=== PATIENT | male | born 1995 | race Hispanic/Latino ===

== ENCOUNTER 2021-03-01 01:28 | Emergency (ER) | payer SELFPAY ==
[~2021-03-01] VITALS: Ht 165.1 cm; Wt 86.2 kg
[2021-03-01] MEDS ORDERED: HYDROCODONE/APAP 5MG-325MG TAB PO PRN (02:00)
[2021-03-01] MEDS ORDERED: HYDROCODONE/APAP 5MG-325MG TAB ONE (02:00)
[2021-03-01] MEDS ORDERED: BACITRACIN3.5 GM TP (02:02)
[2021-03-01] MEDS ORDERED: IBUPROFEN600 MG PO (02:02)
[2021-03-01] MEDS ORDERED: HYDROCODON-ACE1 EA11 PO (02:05)
[2021-03-01] MEDS ORDERED: BACITRACIN ZINC 0.9GM TP ONE ×2 (02:30→02:34)
[2021-03-01 02:37] VITALS: BP 149/87
== END 2021-03-01 02:37 | disposition home or self-care (01) ==
LOC: FSED 02:00
DX: T22.212A Burn of second degree of left forearm, initial encounter (principal); T22.112A Burn of first degree of left forearm, initial encounter; X12.XXXA Contact with other hot fluids, initial encounter; Y92.008 Other place in unspecified non-institutional (private) residence as the place of occurrence of the external cause; F17.210 Nicotine dependence, cigarettes, uncomplicated
CPT/HCPCS: 99283